=== PATIENT | male | born 1960 | race Caucasian/White ===

== ENCOUNTER 2016-09-20 18:04 | Emergency (ER) | payer OTHER ==
[~2016-09-20] VITALS: Ht 172.7 cm; Wt 100.4 kg
--- NOTE | 2016-09-20 18:44 | NUR ---
PT REPORT GIVEN & CARE TSF TO Mckenzie MEHTA RN. CL
[2016-09-20] MEDS ORDERED: KETOROLAC 30 MG/ML (TORADOL) 1 ML VIAL IV ONE (18:50)
[2016-09-20] MEDS ORDERED: SODIUM CHLORIDE FLUSH 3 ML SYR IV PRN (18:50)
[2016-09-20] MEDS ORDERED: ONDANSETRON 2 MG/ML (Z0FRAN) 2 ML VIAL IV ONE (18:50)
[2016-09-20] MEDS ORDERED: SODIUM CHLORIDE FLUSH 10 ML SYR IV PRN (18:50)
[2016-09-20 19:04] LABS: BASOPHILS % (AUTO) 0 % (0-2); EOSINOPHILS # (AUTO) 0.2 10^3uL; EOSINOPHILS % (AUTO) 1 % (0-4); LYMPHOCYTES # (AUTO) 1.6 X10^3; MEAN CORPUSCULAR HEMOGLOBIN 29.2 PG (26.0-34.0); MEAN CORPUSCULAR VOLUME 82 FL (80-100); MEAN PLATELET VOLUME 11.4 FL (6.0-9.5); MONOCYTES # (AUTO) 1.6 X10^3; MONOCYTES % (AUTO) 9 % (3-11); NEUTROPHILS # (AUTO) 13.7 X10^3; NEUTROPHILS % (AUTO) 80 % (51-67); PLATELET COUNT 213 10^3uL (150-450); WHITE BLOOD COUNT 17.13 10^3uL (4.0-11.0)
[2016-09-20 19:09] LABS: MEAN CORPUSCULAR HGB CONC 35.7 g/dL (31.0-37.0)
[2016-09-20 19:14] LABS: ALBUMIN 4.4 g/dL (3.4-5.0); ANION GAP 13.6 MEQ/L (3-15); CALCULATED IONIZED CALCIUM 3.9 mg/dL (3.8-4.6); TOTAL PROTEIN 7.7 g/dL (6.4-8.5)
[2016-09-20 21:00] LABS: BILIRUBIN,URINE Negative (Negative); CLARITY,URINE Clear; COLOR,URINE Yellow; GLUCOSE, URINE (UA) Negative (Negative); LEUKOCYTE ESTERASE ,URINE Negative (Negative); PH,URINE 5.5 (5.0 - 8.0); UROBILINOGEN,URINE 0.2 mg/dL (0.2-1.0)
[2016-09-20] MEDS ORDERED: ERTAPENEM 1 GM in SODIUM CHLORIDE 50 ML IV ONE (23:45)
--- NOTE | 2016-09-21 01:00 | NUR ---
Pt states that he is feeling better at this time, and is ok with going home. at the bedside.
[2016-09-21 01:14] VITALS: BP 130/72
== END 2016-09-21 01:15 | disposition home or self-care (01) ==
LOC: ED 18:07
DX: K57.32 Diverticulitis of large intestine without perforation or abscess without bleeding (principal)
CPT/HCPCS: 36415; 74177; 80053; 81003; 82150; 83690; 85025; 86140; 96361; 96365; 96375; 99284; J1335; J1885; J2405; J7030; Q9967; 99283